=== PATIENT | male | born 1970 | race Caucasian/White ===

== ENCOUNTER 2022-01-23 10:22 | Day surgery (SDC) | payer OTHER ==
--- NOTE | 2022-01-18 10:30 | RAD REPORT ---
EXAM DESCRIPTION: Jorgito Choudhury (2 Views)01/18/2022 10:05 am CLINICAL HISTORY: Preop for shoulder surgery COMPARISON: None FINDINGS: The lungs appear clear of acute infiltrate. The heart is normal size IMPRESSION: No acute abnormalities displayed
[2022-01-18 11:00] LABS: Protime INR 1.01
[2022-01-18 11:13] LABS: Potassium 4.7 mmol/L (3.5-5.1)
[2022-01-18 11:36] LABS: Absolute Lymphocytes (CBC) 2.5 K/uL (0.7-4.9); Hematocrit 45.4 % (39.6-49.0); Lymphocytes % 24.7 % (15.3-44.8); RBC Red Blood Cell Count 5.09 M/uL (4.33-5.43)
[2022-01-23] MEDS ORDERED: NA CHLORIDE 0.9% 1,000 ML ONE (10:39)
[2022-01-23] MEDS ORDERED: CEFAZOLIN/SWI 2gm 2 GM/20 ML SYR ONE (10:39)
[2022-01-23] MEDS ORDERED: LIDOCAINE 1% MPF 5 ML VIAL ONE (11:48)
[2022-01-23] MEDS ORDERED: MIDAZOLAM HCL 2 MG/2 ML INJ ONE (11:49)
[2022-01-23] MEDS ORDERED: FENTANYL CITR 100 MCG/2 ML ONE (11:49)
[2022-01-23] MEDS ORDERED: BUPIVACAINE 0.5% Inj,MDV 50 mL VIAL ONE (11:49)
[2022-01-23] MEDS ORDERED: EPINEPHRINE/PF 1 MG/ML AMP ONE ×2 (12:16→12:25)
[2022-01-23] MEDS ORDERED: propofoL 200 MG/20 ML VIAL IV ONE (12:19)
[2022-01-23] MEDS ORDERED: dexAMETHasone 10 MG/ML VIAL ONE (12:19)
[2022-01-23] MEDS ORDERED: KETOROLAC 30 MG/ML INJ ONE (12:19)
[2022-01-23] MEDS ORDERED: ONDANSETRON 4 MG/2 ML VIAL ONE (12:20)
[2022-01-23] MEDS ORDERED: LIDOCAINE 1% MPF 30 ML VIAL ONE (12:27)
[2022-01-23] MEDS ORDERED: ROCURONIUM 50 MG/5 ML VIAL IV ONE (12:53)
[2022-01-23] MEDS ORDERED: Ringers Lactate 1,000 ML IV ONE (14:23)
--- NOTE | 2022-01-23 15:05 | P.BOP ---
Preoperative diagnosis: right rotator cuff tear, impingement syndrome, SLAP tear, AC arthrosis Postoperative diagnosis: same Primary procedure: right shoulder arthroscopic rotator cuff and SLAP debridement Secondary procedure: right shoulder arthroscopic subacromial decompression Other procedure(s): right shoulder arthroscopic distal clavicle excision Estimated blood loss: 5 cc Specimen: none Findings: see dictation Anesthesia: General Complications: None Implants: none Fluids & blood products: per anesthesia record Transferred to: Recovery Room Condition: Good
--- NOTE | 2022-01-23 15:55 | RAD REPORT ---
EXAM DESCRIPTION: RAD - Shoulder 1 View - 01/23/2022 3:26 pm CLINICAL HISTORY: Right shoulder surgery FINDINGS: Postoperative changes involve the right shoulder. No fracture or dislocation seen. A radiopaque structures lateral to the humeral head may represent calcification or injected contrast
[2022-01-23 16:36] VITALS: BP 117/71; TEMP 97.1; O2SAT 96
--- NOTE | 2022-01-24 03:29 | OP ---
Date of Procedure: 01/23/2022 Surgeon: Dilshad Dietz MD Preoperative Diagnoses: 1.Right shoulder rotator cuff tear. 2.Right shoulder impingement syndrome. 3.Right shoulder SLAP tear. 4.Right shoulder AC joint arthrosis. Surgeries Performed: 1.Right shoulder arthroscopic rotator cuff tear debridement and SLAP tear debridement. 2.Right shoulder arthroscopic subacromial decompression. 3.Right shoulder arthroscopic distal clavicle excision. Anesthesia: General endotracheal. Fluids: Per Anesthesia's record. Ebl: 5 cc. Complications: None. Implants: None. Indication For Procedure: Mitchell is a 51-year-old male, presented to my clinic with signs and sympto ms as well as MRI findings consistent with right shoulder rotator cuff tear and SLAP tear with imping ement syndrome and AC joint arthrosis. I discussed with the patient at length his diagnosis as well as risks and benefits associated with operative and nonoperative treatment. The patient failed conse rvative treatment measures and elected to proceed with operative treatment. Description Of Procedure: After informed consent was obtained, the patient was identified in the pre operative holding area. The right upper extremity was marked. The patient was then brought back to the PACU where he underwent an interscalene block to right shoulder. The patient was then brought to the operating room and transferred to the operating table in supine fashion, placed under general en dotracheal anesthesia. The right upper extremity was then prepped and draped in usual sterile fashio n. A time-out was initiated. The correct patient and procedure were confirmed and identified. The patient did receive his preoperative prophylactic antibiotics. A spinal needle was introduced in the glenohumeral joint via the posterior portal position and the shoulder was injected with 30 cc of nor mal saline to distend the capsule. A stab incision was made posteriorly to create a posterior portal and the arthroscope was brought in via the posterior portal position. Diagnostic arthroscopy was pe rformed. The patient was noted to have a pristine cartilage of the humeral head as well as no signif icant articular-sided rotator cuff tear, which was stable to probe. The anterior and posterior karen were found to be stable and intact without tear. There was a type 1 SLAP tear on the superior-poste rior border of the glenoid; however, the labrum was stable to probe. Biceps tendon anchor was intact . There was some mild erythema within the biceps tendon consistent with bicipital tenosynovitis, but no significant fraying. No biceps tenotomy or tenodesis was indicated at this time. The subscapula ris over the superior border was noted to have a small less than 5% tear of the superior border of paris bscapularis, which was debrided using the arthroscopic shaver. The superior labrum was then debrided using the arthroscopic shaver for debridement of type 1 SLAP tear. The arthroscope was then brought into the axillary pouch and there were no loose bodies within the axillary pouch. The arthroscope w as then brought into the subacromial space and subacromial bursectomy was performed after a lateral p ortal was created. There were some hyperemia and some mild fraying of the bursal side of the rotator cuff consistent with small partial-thickness bursal-sided tear. This was debrided using the arthros copic shaver. The rotator cuff was probed both in internal and external rotations and to ensure no t ears were noted. No significant full-thickness tears were noted, and at that point, there was noted to be some fraying of the coracoacromial ligament. Using a radiofrequency ablator, the undersurface of the acromion was debrided, and an acromioplasty and subacromial decompression were performed using the arthroscopic brandon. The patient was noted to have some edema within the AC joint as well as some hypertrophy of the AC joint with preoperative MRI. At that point, it was elected to proceed with di stal clavicle excision. Arthroscopic brandon was brought into the anterior portal and the distal clavic le was debrided about 5 mm to perform the distal clavicle excision. Arthroscopic instruments were th en removed without complications. The wounds were then irrigated thoroughly with normal saline. Ski n was approximated using a 2-0 Vicryl. Portals were approximated using a 4-0 Monocryl. Sterile dres sings were applied. The patient was placed in a shoulder immobilizer, awakened, and transferred to P ACU in stable condition. Postoperative Plan: The patient will be nonweightbearing and be in a shoulder immobilizer. Follow u p in 1 week for wound check. CV/MODL Voice ID: [id number] Report ID: [id number]
== END 2022-01-23 16:33 | disposition home or self-care (01) ==
LOC: OR 10:22
PROVIDERS: ATTEND Orthopaedic Surgery Sports Medicine
PROC: 0RNJ4ZZ Release Right Shoulder Joint, Percutaneous Endoscopic Approach (ICD-10-PCS; 2022-01-23)
PROC: 0PB94ZZ Excision of Right Clavicle, Percutaneous Endoscopic Approach (ICD-10-PCS; 2022-01-23)
PROC: 0RBJ4ZZ Excision of Right Shoulder Joint, Percutaneous Endoscopic Approach (ICD-10-PCS; principal; 2022-01-23 12:00)
DX: M75.121 Complete rotator cuff tear or rupture of right shoulder, not specified as traumatic (principal); S43.431A Superior glenoid labrum lesion of right shoulder, initial encounter; M75.21 Bicipital tendinitis, right shoulder; M75.41 Impingement syndrome of right shoulder; E11.9 Type 2 diabetes mellitus without complications; I10 Essential (primary) hypertension; E78.5 Hyperlipidemia, unspecified; M19.011 Primary osteoarthritis, right shoulder; Z20.822 Contact with and (suspected) exposure to COVID-19
CPT/HCPCS: 93005; 85025; 80048; 36415; 85610; 82947; 85730; 71046; 73020; 29822; 29826; 29824; U0002; J2704; J0171 ×2; J2250; J3010; J1100; J0690; J7120; J7030; J2405